=== PATIENT | female | born 2000 | race Two or more races ===

== ENCOUNTER 2021-03-23 15:35 | Outpatient (REF) | payer MEDICAID, SELFPAY ==
[2021-03-23 15:54] LABS: Binax Internal Control QC Valid; Binax Now Covid-19 Ag Negative (Negative)
== END 2021-03-23 15:36 | disposition home or self-care (01) ==
LOC: HO.LAB 15:35
PROVIDERS: Visit Provider Internal Medicine
DX: Z20.822 Contact with and (suspected) exposure to COVID-19 (principal)
CPT/HCPCS: C9803

== ENCOUNTER 2022-01-28 12:23 | Emergency (ER) | payer MEDICAID, SELFPAY ==
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
--- NOTE | ~2022-01-28 | XR_ITS ---
EXAMINATION: XR FOOT, RIGHT CLINICAL INFORMATION: Great toe pain COMPARISON: None TECHNIQUE: AP, lateral, and oblique views of the right foot. FINDINGS: No fracture or dislocation. Joint spaces are maintained. No osteophytes or erosions. Alignment at the tarsometatarsal joints is within normal limits. No ankle joint effusion. XR/XR foot RT min 3V IMPRESSION: No acute osseous injury.
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
--- NOTE | ~2022-01-28 | XR_ITS ---
EXAMINATION: XR HAND, LEFT CLINICAL INFORMATION: Fifth finger pain COMPARISON: None TECHNIQUE: PA, lateral, and oblique views of the left hand. FINDINGS: There is a nondisplaced fracture through the base of the proximal phalanx of the fifth finger. No other fracture. Joint spaces are normal. Soft tissues are normal. XR/XR hand LT min 3V IMPRESSION: Nondisplaced fracture of the base of the proximal phalanx of the fifth finger.
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
[2022-01-28 13:29] VITALS: BP 115/76; PULSE 70; RESP 18; TEMP 36.1; O2SAT 100; BMI 24.7
== END 2022-01-28 16:29 | disposition home or self-care (01) ==
PROVIDERS: Emergency Provider Emergency Medicine
DX: S62.647A Nondisplaced fracture of proximal phalanx of left little finger, initial encounter for closed fracture (principal); Y04.2XXA Assault by strike against or bumped into by another person, initial encounter; R51.9 Headache, unspecified; Y93.89 Activity, other specified; Y92.019 Unspecified place in single-family (private) house as the place of occurrence of the external cause; Y99.9 Unspecified external cause status
CPT/HCPCS: 29130; 70450; 70486; 71045; 72072; 72125; 73130; 73630; 99282; 99284

== ENCOUNTER 2022-11-26 15:40 | Emergency (ER) | payer OTHER, SELFPAY ==
[2022-11-26 15:45] VITALS: BP 114/61; BP 126/74; PULSE 64; PULSE 84; RESP 18; TEMP 37.1; O2SAT 100; O2SAT 99; BMI 28.6
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
== END 2022-11-26 16:27 | disposition home or self-care (01) ==
PROVIDERS: Emergency Provider Internal Medicine
DX: S13.4XXA Sprain of ligaments of cervical spine, initial encounter (principal); R51.9 Headache, unspecified; M54.2 Cervicalgia; V43.52XA Car driver injured in collision with other type car in traffic accident, initial encounter; Y93.9 Activity, unspecified; Y92.410 Unspecified street and highway as the place of occurrence of the external cause; Y99.9 Unspecified external cause status
CPT/HCPCS: 99282

== ENCOUNTER 2023-01-06 22:13 | Emergency (ER) | payer OTHER, SELFPAY ==
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
[2023-01-06 22:21] VITALS: BP 114/62; PULSE 69; RESP 18; TEMP 36.8; O2SAT 95
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
[2023-01-06 22:25] VITALS: BP 119/77; PULSE 67; O2SAT 100; BMI 24.2
[2023-01-06] MEDS: Ibuprofen 600 MG TABLET PO (22:42)
--- OUTSIDE RECORDS SUMMARY | 2023-01-06 23:43 | XMS_ITS | Continuity of Care Document ---
Author Name Unknown Organization [facility] Address [address] [address]- Care Team Providers Care Temporary Staff Accountant Name Role Phone Ingrid Dorantes NP Primary Care Physician [place] [facility] [place] 11/09/22 [facility] [address] [place] [id number]- Attending Physician: Rajan Novak MD Referring Physician: Not on Staff, Referring MD Allergies, Adverse Reactions, Alerts No Known Medication Allergies Patient Care team information Care Team Personnel Name: Ingrid Dorantes NP Position: [facility] MD Member Role: PCP Address: Address: [address] [place] [address]- Care Team Related Persons Name: KELSY MONSALVE Address: [place] [address]
--- OUTSIDE RECORDS SUMMARY | 2023-01-06 23:43 | XMS_ITS | Continuity of Care Document ---
Author Name Unknown Organization [facility] Address [address] [address]- Care Team Providers Care Orchestrator Name Role Phone Ingrid Dorantes NP Primary Care Physician [phone] [place] [facility] [place] 10[place]10/22 - 11/09/22 [facility] [address] [place] [address]- Attending Physician: Admtr Ar8 Admitting Physician: Admtr, Ar8 Referring Physician: Admtr, Ar8 Allergies, Adverse Reactions, Alerts No Known Medication Allergies Patient Care team information Care Team Personnel Name: Ingrid Dorantes NP Position: [facility] MD Member Role: PCP Address: Address: [address] [place] [id number] Care Team Related Persons Name: KELSY MONSALVE Address: [place] [address]
--- OUTSIDE RECORDS SUMMARY | 2023-01-06 23:43 | XMS_ITS | Continuity of Care Document ---
Author Name Unknown Organization [facility] ter Address [address] [place] [id number]- Care Team Providers Care Drop Hammer Setter Up Name Role Phone Carlos RIVERA, Nia Soliz Primary Care Physician [place] [facility] [place]/16/22 - 06/16/[address] [address]- Discharge Disposition: A-D/C Walkout Attending Physician: Not on Staff, Attending MD Admitting Physician: Not on Staff, Admitting MD Referring Physician: Not on Staff, Referring MD Allergies, Adverse Reactions, Alerts No Known Medication Allergies Vital Signs Most recent to oldest [Reference Range]: 1 2 Height 160 cm (06/16/22 6:08 PM) 160 cm (06/16/22 5:43 PM) Weight 65.5 kg (06/16/22 6:08 PM) 65.5 kg (06/16/22 5:43 PM) Oxygen Saturation [94-100 %] 100 % (06/16/22 6:08 PM) 99 % (06/16/22 5:15 PM) Pulse Rate [55-90 bpm] 99 bpm *H* (06/16/22 6:08 PM) 105 bpm *H* (06/16/22 5:15 PM) Body Mass Index [18.5-24.99 kg/m2] 25.59 kg/m2 *H* (06/16/22 6:08 PM) Blood Pressure [90-138/55-84 mm Hg] 128/ 77mm Hg (06/16/22 6:08 PM) Respiratory Rate [16-30 br/min] 18 br/mi n (06/16/22 6:08 PM) Temperature [96.8-100.4 DegF] 100.3 DegF (06/16/22 6:08 PM) Mode of Delivery (Oxygen) Room air (06/16/22 6:08 PM) Room air (06/16/22 5:15 PM) Blood pressure sites Arm, left (06/16/22 6:08 PM) Temperature Route Oral (06/16/22 6:08 PM) Dry Weight 65.5 kg (06/16/22 6:08 PM) 65.5 kg (06/16/22 5:43 PM) Patient Care team information Care Team Personnel Name: Carlos RIVERA, Nia Soliz Position: Reference Physician Member Role: PCP Address: Address: [address] [place] [address] [place] [address]
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
[2023-01-07 00:07] VITALS: BP 109/70; PULSE 62; RESP 14; TEMP 37.2; O2SAT 99
== END 2023-01-07 01:06 | disposition home or self-care (01) ==
PROVIDERS: Emergency Provider Internal Medicine
DX: S13.4XXA Sprain of ligaments of cervical spine, initial encounter (principal); M54.2 Cervicalgia; V43.52XA Car driver injured in collision with other type car in traffic accident, initial encounter; Y93.9 Activity, unspecified; Y92.410 Unspecified street and highway as the place of occurrence of the external cause; Y99.9 Unspecified external cause status
CPT/HCPCS: 72040; 99283; 99284